=== PATIENT | male | born 1985 | race Caucasian/White ===

== ENCOUNTER 2018-10-24 18:06 | Emergency (ER) | payer OTHER ==
--- NOTE | 2018-10-24 18:42 | EDPHY ---
H & P Stated Complaint: right lower abd pain. sent from [facility]. recent Dengue fever Time Seen by Provider: 10/24/18 18:34 HPI/ROS: CHIEF COMPLAINT: Referred from [facility] for elevated white blood cell count and intermittent abdominal pain HISTORY OF PRESENT ILLNESS: The patient is referred to the emergency department from the [facility] for evaluation of abdominal pain. He reports he has been having intermittent right quadrant pain and back pain since Monday. Patient is a somewhat complicated medical history. He was diagnosed with dengue fever clinically while traveling in [facility] approximately a month and half ago. The patient denies any fever, cough or congestion. The patient reports he has been experiencing early satiety. The patient denies significant past medical history. REVIEW OF SYSTEMS: A comprehensive 10 point review of systems is otherwise negative aside from elements mentioned in the history of present illness. Source: Patient - Personal History Current Tetanus/Diphtheria Vaccine: Yes Current Tetanus Diphtheria and Acellular Pertussis (TDAP): Yes - Medical/Surgical History Hx Asthma: No Hx Chronic Respiratory Disease: No Hx Diabetes: No Hx Cardiac Disease: No Hx Renal Disease: No Hx Cirrhosis: No Hx Alcoholism: No Hx HIV/AIDS: No Hx Splenectomy or Spleen Trauma: No Other PMH: Dengue fever after travel in [facility] - Social History Smoking Status: Former smoker - Physical Exam Exam: General Appearance: Alert, no distress Eyes: Pupils equal and round no pallor or injection ENT, Mouth: Mucous membranes moist Respiratory: There are no retractions, lungs are clear to auscultation Cardiovascular: Regular rate and rhythm Gastrointestinal: Abdomen is soft and nontender, no masses, bowel sounds normal Neurological: 5/5 strength all 4 extremities Skin: Warm and dry, no rashes Musculoskeletal: Neck is supple nontender Extremities: symmetrical, full range of motion Constitutional: Initial Vital Signs Temperature (C) 37.4 C 10/24/18 18:08 Heart Rate 92 10/24/18 18:08 Respiratory Rate 16 10/24/18 18:08 Blood Pressure 140/88 H 10/24/18 18:08 O2 Sat (%) 96 10/24/18 18:08 O2 Delivery Mode Room Air Allergies/Adverse Reactions: No Known Allergies Allergy (Verified 08/13/12 16:46) Home Medications: Medication Instructions Recorded Miscellaneous Medical Supply [NO 1 ea MISC AD 08/13/12 HOME MEDS] oxyCODONE/APAP 5/325 [Percocet 1 - 2 tab PO Q4-6PRN PRN #20 tab 08/13/12 5/325 (RX)] Ondansetron Odt [Zofran Odt] 4 mg PO Q4PRN PRN #20 tab 10/24/18 Medical Decision Making - Diagnostics Imaging Results: Imaging Impressions Abdomen CT 10/24/18 18:54 Impression: 1. No evidence for appendicitis or source for right lower quadrant pain identified. 2. Two incidental pulmonary nodules of uncertain clinical significance. According to the Fleischner Society guidelines for a low risk patient, recommend noncontrast chest CT at 6-12 months and then consider CT and 18-24 months. 3. Possible pancreas divisum. If clinically indicated consider MRI of the pancreas and MRCP for confirmation and to reevaluate "bulkiness" of the uncinate process. Results discussed with Dr. Erwin August at 7:52 PM. General information for patients regarding this examination can be found at [email or web address]. If you have questions or comments about this report, please contact me at (hospital) or [phone] (cell). ED Course/Re-evaluation: I reviewed the patient's outpatient lab workup more number which included a [place] [address], normal platelets, unremarkable basic metabolic panel, normal liver function tests, urinalysis did demonstrate 11-20 white cells and 3-5 red blood cells. Patient received a L of normal saline. I find the patient's abdominal examination to be very benign. He has some mild mid abdominal tenderness. Given his leukocytosis in the uncertainty of his diagnosis CT scan of the abdomen pelvis was ordered. Demonstrates no evidence of appendicitis or other inflammatory process. The patient does have a possible pancreatic divisum. Pulmonary nodules were also noted. Re-evaluated patient at 8:20 p.m. and he is nontoxic and well-appearing. Plan will be to begin Zofran and ranitidine. Patient is informed of the CT findings and need for follow-up. The patient is given the contact number of our on-call circuitry negative inspector for further evaluation and management of his symptoms. Patient is discharged home with customary aftercare instructions and return precautions. Differential Diagnosis: Differential diagnosis considered includes appendicitis, perforation, abscess, peritonitis, pancreatitis, cholecystitis - Data Points Laboratory Results: 10/24/18 10/24/18 19:10 19:02 POC Hgb 14.3 gm/dL gm/dL (13.7-17.5) POC Hct 42 % % (40-51) POC Sodium 139 mEq/L mEq/L (135-145) POC Potassium 3.4 mEq/L mEq/L (3.3-5.0) POC Chloride 105 mEq/L mEq/L (97-110) POC Total CO2 20 mEq/L L mEq/L (22-31) POC BUN 7 mg/dL mg/dL (7-23) POC Creatinine 0.9 mg/dL mg/dL (0.7-1.3) POC Glucose 104 mg/dL H mg/dL (70-100) Lipase 60 IU/L IU/L (23-300) Point of Care Test Results: Chemistry 10/24/18 19:10 POC Sodium 139 mEq/L mEq/L (135-145) POC Potassium 3.4 mEq/L mEq/L (3.3-5.0) POC Chloride 105 mEq/L mEq/L (97-110) POC Total CO2 20 mEq/L L mEq/L (22-31) POC BUN 7 mg/dL mg/dL (7-23) POC Creatinine 0.9 mg/dL mg/dL (0.7-1.3) POC Glucose 104 mg/dL H mg/dL (70-100) ISTAT H&H 10/24/18 19:10 POC Hgb 14.3 gm/dL gm/dL (13.7-17.5) POC Hct 42 % % (40-51) Departure - Departure Disposition: Home, Routine, Self-Care Clinical Impression: Abdominal pain Condition: Good Instructions: Acute Abdominal Pain (ED) Additional Instructions: 1. Your CT scan demonstrates no evidence of appendicitis. 2. You had 2 incidental findings: a. 2. Two incidental pulmonary nodules of uncertain clinical significance. According to the Fleischner Society guidelines for a low risk patient, recommend noncontrast chest CT at 6-12 months and then consider CT and 18-24 months. b. You may have a variant of your pancreatic duct which can predispose you to developing pancreatitis. You have no evidence of pancreatitis today. I do recommend following up with Gastroenterology. 3. Zofran as needed for nausea 4. Return to the ED for markedly worsening symptoms or other concerns. 5. Follow up with a circuitry negative inspector you have been referred to for any unimproved symptoms 6. I do recommend beginning Zantac 150 mg twice a day. This is available over- the-counter. Referrals: George Rodriguez MD [Medical Doctor] - As per Instructions
[2018-10-24] MEDS ORDERED: IOHEXOL 300 mgI/ML (OMNIPAQUE) 150 ML BTL IV ONE (19:00)
[2018-10-24 20:33] VITALS: BP 129/75
== END 2018-10-24 20:33 | disposition home or self-care (01) ==
DX: R10.31 Right lower quadrant pain (principal)
CPT/HCPCS: 82435-PO; 82565-PO; 82947-PO; 84132-PO; 84295-PO; 84520-PO; 85014-ER; Q9967